=== PATIENT | female | born 1940 | race Caucasian/White ===

== ENCOUNTER 2019-03-02 19:49 | Inpatient (IN) | payer MEDICARE ==
--- NOTE | 2019-03-02 20:14 | ED ---
Neurological HPI - HPI Summary HPI Summary: Time seen by provider: 1999. The patient is an 78 y/o F presenting to [facility] arriving by ambulance as transfer from [facility] with a chief complaint of lethargy with associated neurological symptoms starting today at 1500. She states that since she woke up, she had felt more lethargic than usual, but then at 1500, her symptoms worsened as she developed a severe right-sided temporal headache, dizziness, and nausea. She thought that her blood glucose was low so she ate a candy bar to no relief. She spoke with her neighbor friend who suggested that she go to the hospital because she also started to experience confusion and a right-sided facial droop. At [facility], she had an elevated BP in the 220s/100s but the rest of her symptoms had resolved other than the headache. She reports that she has had these symptoms before with TIA-like events termed RIND that begin with a headache on the right side and associated elevated BP, RUE and RLE weakness, slurred speech, and right facial droop. She did not experience any extremity weakness during this episode. She also denies unsteady gait, CP, and SOB. She has seen neurologists at [facility] and in [place]. Hx of Type II DM, HTN, HLD, DVT/PE, and kidney stones. Medications include Lisinopril and Xarelto. Surgical hx of cholecystectomy. Nonsmoker. Medical Records Obtained from [facility]: Blood Work: WBC 12.9, Platelets 271, Glucose 170, Creatinine 1.2; Imaging: negative CT Head, nml EKG; PMHx: At least 37 listed allergies, Type II DM, HTN, HLD, kidney stones, DVT/PE ; Surgical Hx: Cholecystectomy; Social Hx: Lives alone Medications Given: 5mg Metoprolol IV, 10mg Propranolol PO - History of Current Complaint Chief Complaint: EDWeakness Stated Complaint: FATIGUE PER EMS Time Seen by Provider: 03/02/19 20:00 Hx Obtained From: Patient Onset/Duration: Sudden Onset - at 1500 today, Started hours ago, Resolved - all symptoms except for headache Onset Severity: Moderate Current Severity: Mild Neurological Deficit Location: Facial - right facial droop (resolved) Headache Location: Temporal (Right) Pain Intensity: 0 Pain Scale Used: 0-10 Numeric Character: Dizzy - resolved, Confusion - resolved, Lethargy Aggravating: Nothing Alleviating: Nothing Associated Signs and Symptoms: Positive: Headache - right temporal, Confusion, Dizziness, Nausea/Vomiting. Negative: Unsteady Gait, Weakness, Chest Pain, Shortness of Breath - Allergy/Home Medications Allergies/Adverse Reactions: Allergies Allergy/AdvReac Type Severity Reaction Status Date / Time apixaban [From Eliquis] Allergy Unknown Verified 03/02/19 20:14 Reaction Details aspirin [From Aggrenox] Allergy Unknown Verified 03/02/19 20:14 Reaction Details atorvastatin [From Lipitor] Allergy Unknown Verified 03/02/19 20:14 Reaction Details cephalexin [From Keflex] Allergy Vomiting Verified 03/02/19 20:14 clobetasol Allergy Rash And Verified 03/02/19 20:14 Itching clopidogrel [From Plavix] Allergy Shortness Verified 03/02/19 20:14 of Breath diphenhydramine Allergy Tachycardia Verified 03/02/19 20:14 [From Benadryl] dipyridamole [From Aggrenox] Allergy Unknown Verified 03/02/19 20:14 Reaction Details fluocinonide Allergy Dizziness Verified 03/02/19 20:14 furosemide [From Lasix] Allergy Unknown Verified 03/02/19 20:14 Reaction Details glipizide Allergy Dizziness Verified 03/02/19 20:14 hydromorphone [From Dilaudid] Allergy Shortness Verified 03/02/19 20:14 of Breath Latex, Natural Rubber Allergy Rash Verified 03/02/19 20:14 omeprazole Allergy Shortness Verified 03/02/19 20:14 of Breath Penicillins Allergy Shortness Verified 03/02/19 20:14 of Breath propoxyphene [From Darvon] Allergy Shortness Verified 03/02/19 20:14 of Breath red dye Allergy Swelling Verified 03/02/19 20:14 Of Face,Lips,& Throat rosuvastatin [From Crestor] Allergy Leg Cramps Verified 03/02/19 20:14 Sulfa (Sulfonamide Allergy Shortness Verified 03/02/19 20:14 Antibiotics) of Breath warfarin Allergy Shortness Verified 03/02/19 20:14 of Breath Home Medications: Home Medications Atenolol 1 tab PO DAILY 03/02/19 [History Confirmed 03/02/19] Betamethasone Sindy 0.1% CRM(NF) [Valisone 0.1% CM(NF)] 1 applic TOPICAL DAILY [History Confirmed 03/02/19] Lisinopril 1 tab PO DAILY 03/02/19 [History Confirmed 03/02/19] Lutein 6 mg PO DAILY WITH MEAL 03/02/19 [History Confirmed 03/02/19] Montelukast Sodium TAB* [Singulair TAB*] 10 mg PO BEDTIME 03/02/19 [History Confirmed 03/02/19] Rivaroxaban TAB(*) [Xarelto 20 mg] 1 tab PO DAILY 03/02/19 [History Confirmed ] Sitagliptin (NF) [Januvia (NF)] 1 tab PO DAILY 03/02/19 [History Confirmed 03/02] Spironolactone TAB* [Aldactone TAB*] 12.5 mg PO DAILY 03/02/19 [History Confirmed 03/02/19] clonazePAM TAB(*) [KlonoPIN TAB(*)] 0.5 mg PO DAILY 03/02/19 [History Confirmed 03/02/19] PMH/Surg Hx/FS Hx/Imm Hx Endocrine/Hematology History: Reports: Hx Diabetes - type II Cardiovascular History: Reports: Hx Hypercholesterolemia, Hx Hypertension Respiratory History: Reports: Hx Pulmonary Embolism - DVT PE History: Reports: Hx Kidney Stones Sensory History: Reports: Hx Contacts or Glasses Opthamlomology History: Reports: Hx Contacts or Glasses EENT History: Denies: Hx Deafness Neurological History: Reports: Other Neuro Impairments/Disorders - TIA/RIND - Surgical History Surgery Procedure, Year, and Place: cholecystectomy Infectious Disease History: No Infectious Disease History: Denies: Traveled Outside the [place] in Last 30 Days - Family History Known Family History: Positive: Hypertension, Diabetes - Social History Lives: Alone Alcohol Use: None Hx Substance Use: No Substance Use Type: Reports: None Hx Tobacco Use: No Smoking Status (MU): Never Smoked Tobacco Do You Chew or Dip Tobacco: No Have You Chewed or Dipped Tobacco in the LAST YEAR: No Have You Smoked in the Last Year: No Review of Systems Positive: Other - lethargy, body aches Negative: Chest Pain Negative: Shortness Of Breath Positive: Nausea Neurological: Other - POSITIVE: right-sided facial droop (resolved), confusion ( resolved), dizziness (resolved); NEGATIVE: unsteady gait Positive: Headache - right-sided temporal. Negative: Weakness - in legs or arms , Slurred Speech All Other Systems Reviewed And Are Negative: Yes Physical Exam - Summary Physical Exam Summary: Appearance: well appearing, no pain distress Skin: warm, dry, reflects adequate perfusion Head/face: normal Eyes: EOMI, MEG ENT: mucous membranes moist Neck: supple, non-tender Respiratory: CTA, breath sounds present Cardiovascular: Bradycardic, pulses symmetrical Abdomen: non-tender, soft Bowel Sounds: present Musculoskeletal: normal, strength/ROM intact Neuro: sensory motor intact, A&Ox3, twitching in upper lip mostly right-sided but no facial droop but otherwise no other symptoms present Triage Information Reviewed: Yes Vital Signs On Initial Exam: Initial Vitals Temp Pulse Resp BP Pulse Ox 97.8 F 57 24 213/83 97 03/02/19 19:55 03/02/19 19:55 03/02/19 19:55 03/02/19 19:55 03/02/19 19:55 Vital Signs Reviewed: Yes - [place] Coma Scale Best Eye Response: 4 - Spontaneous Best Motor Response: 6 - Obeys Commands Best Verbal Response: 5 - Oriented Coma Scale Total: 15 Diagnostics - Vital Signs Vital Signs Temp Pulse Resp BP Pulse Ox 03/02/19 19:55 97.8 F 57 24 213/83 97 - Laboratory Lab Statement: Any lab studies that have been ordered have been reviewed, and results considered in the medical decision making process. - EKG 2031 Cardiac Rate: Bradycardia - 53 BPM EKG Rhythm: Sinus Bradycardia Summary of EKG Findings: Bradycardia at 53 BPM, Normal [place], Normal Interval, Normal ST NIH Scale - NIH Scale Level of Consciousness: Alert/Keenly Responsive Ask Patient the Month and His/Her Age: Both Correct Ask Pt to Open/Close Eyes and Particle Board Supervisor/Release Non-Paretic Hand: Both Correctly Best Gaze (Only Horizontal Eye Movement): Normal Visual Field Testing: No Visual Loss Facial Paresis-Pt to Smile & Close Eyes or Grimace Symmetry: Normal/Symmetrical Motor Function - Right Arm: No Drift-Holds 10 Seconds Motor Function - Left Arm: No Drift-Holds 10 Seconds Motor Function - Right Leg: No Drift-Holds 10 Seconds Motor Function - Left Leg: No Drift-Holds 10 Seconds Limb Ataxia-Must be out of Proportion to Weakness Present: Absent Sensory (Use Pinprick to Test Arms/Legs/Trunk/Face): Normal Best Language (Describe Picture, Name Items): No Aphasia Dysarthria (Read Several Words): Normal Extinction and Inattention: No Abnormality Total Score: 0 Course/Dx - Course Course Of Treatment: Nurses notes reviewed. Patient is a transfer from outside hospital with concern for stroke syndrome. She has NIH stroke score of 0 at present and was given aspirin and hydration here. Her head CT laboratories been benign outpatient. She has multiple stated allergies included aspirin however she states that she can take this. Hospitalist was contacted and she will be admitted for further. Her blood pressure was grossly elevated and this was treated with IV hydralazine with good results. Blood pressure is 1 from 222 systolic down to 177 systolic. - Diagnoses Provider Diagnoses: TIA (transient ischemic attack), Uncontrolled hypertension - Physician Notifications Discussed Care Of Patient With: Rossana Gannon - hospitalist Time Discussed With Above Provider: 20:00 Instructed by Provider To: Other - I consulted with Dr. Gannon who accepts the patient for admission at this time. - Critical Care Time Critical Care Time: 30-74 min - Critical care time is exclusive of separately billable procedures Discharge - Sign-Out/Discharge Documenting (check all that apply): Patient Departure - Patient will be admitted to [facility] for further care. Patient Received Moderate/Deep Sedation with Procedure: No - Discharge Plan Condition: Fair Disposition: ADMITTED TO [facility] - Billing Disposition and Condition Condition: FAIR Disposition: Admitted to [facility] - Attestation Statements Document Initiated by Alexe: Yes Documenting Scribe: Audelia Gifford Provider For Whom Corby is Documenting (Include Credential): Dr. Aleksandr Dalal MD Scribe Attestation: Audelia Castillo scribed for Dr. Aleksandr Dalal MD on 03/03/19 at 0348. Scribe Documentation Reviewed: Yes Provider Attestation: The documentation as recorded by the Audelia block accurately reflects the service I personally performed and the decisions made by me, Dr. Aleksandr Dalal MD Status of Scribe Document: Viewed
[2019-03-02] MEDS ORDERED: hydrALAZINE IV* 20 MG/ML VIAL IV SLOW PU ONE (20:15)
[2019-03-02] MEDS ORDERED: Aspirin 81 mg CHEW TAB* 81 MG TAB.CHEW PO ONE (20:22)
[2019-03-02] MEDS ORDERED: hydrALAZINE IV* 20 MG/ML VIAL IV SLOW PU PRN (22:11)
[2019-03-02] MEDS ORDERED: Dextrose 50% Syringe 50 ML* 25 GM/50 ML SYRINGE IV PUSH PRN (22:57)
[2019-03-02] MEDS ORDERED: HYDROcodone/ACETAMIN 5-325 MG* 1 TAB PO PRN (23:05)
--- NOTE | 2019-03-03 00:35 | HP ---
CC: Dr. Reese Banks, [place] * HISTORY AND PHYSICAL: DATE OF ADMISSION: 03/02/19 PRIMARY CARE PROVIDER: Dr. Reese Banks in [place]. ATTENDING PHYSICIAN: Rossana Gannon MD * (dictated by KINGSLEY Alaniz). CHIEF COMPLAINT: "I thought I was having another TIA." HISTORY OF PRESENT ILLNESS: Ms. Nunes is an 78-year-old female with a reported past history of TIA sine approximately 2013, "RIND," hypertension, diabetes mellitus, chronic kidney disease stage 3, positive anticardiolipin antibody syndrome, who presented to [facility] with complaints of blurred vision and headache. She reported she has been tired all day. She developed a severe headache around 3 p.m. which was associated with blurred vision. She notes that this lasted approximately 1 hour. At [place], the patient received a CT scan of the head, which revealed no acute hemorrhage, significant mass effect or large infarct. The patient scored 2 on the NIH scale for partial paralysis of the low face (left, per report). She was then transported to [facility]. The patient again notes she has an extensive history of TIAs and RIND. She states that they occur every 6 months or so. She states that she feels her "face is pulled" and heavy. She developed headaches, slurred speech, and cannot use her arm. She notes that these episodes last approximately 1 hour and then disappear without intervention. Now, at [facility], she reports that her headache is mostly resolved, although she does note a faint but constant frontal headache. Her blurred vision has improved since approximately 30 to 40 minutes after the onset of headache and blurred vision. She continues to be tired. Initially, she had dizziness and nausea which have all subsided. She denies abdominal pain, vomiting, chest pain, weakness, or shortness of breath. 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 She denies cough or fever. She denies weakness in any extremity or other neurological deficit. While in the emergency room, the patient received hydralazine 10 due to elevated blood pressure. The hospitalist team were asked to evaluate the patient for admission. The patient was noted to get up and go to the bathroom at some point prior to admission. She apparently used the bathroom and when she was walking out, she got dizzy and lightheaded. She called for help. Staff helped to hold her up until a stretcher was brought to her. She was helped onto the stretcher and then the patient started to develop full body tremors that involved bilateral upper and lower extremities as well as facial twitching and grimacing of the right side of the face. She was responsive throughout the event. She was able to maintain a conversation and answer questions. She notes that this happens to her "every once in a while." She states that this is the TIAs which she also calls RIND and seizures. She is able to follow commands. She is alert, oriented, and cooperative, but noted to have tremors throughout the whole experience. She notes that when this occurs, which it does every 6 months or so , she typically has to wait it out and then she is left with some amount of difficulty with speech or slurred speech as well as facial drooping. PAST MEDICAL HISTORY: 1. Hypertension. 2. Diabetes mellitus type 2. 3. Dyslipidemia. 4. Asthma 5. Chronic kidney disease stage 3. 6. Positive anticardiolipin antibody syndrome. 7. Obesity. 8. Nephrolithiasis. PAST SURGICAL HISTORY: Appendectomy, [facility]RE[facility] BSO, cholecystectomy with postop pulmonary embolism, lithotripsy, ureteroscopy and stent placement, right knee arthroplasty. HOME MEDICATIONS: 1. Lisinopril 10 mg p.o. daily. 2. Xarelto 20 mg p.o. daily. 3. Spironolactone 25 mg one-half tab p.o. daily. 4. Atenolol 50 mg 1 tab p.o. daily. 5. Januvia 50 mg p.o. daily. 6. Lutein 6 mg cap, 1 cap with meals p.o. daily. 7. Montelukast sodium 10 mg p.o. daily. 8. Klonopin 0.5 mg p.o. daily p.r.n. anxiety, MDD 1. DRUG ALLERGIES: APIXABAN, ASPIRIN, ATORVASTATIN, CEPHALEXIN, CLOBETASOL, CLOPIDOGREL, DIPHENHYDRAMINE, DIPYRIDAMOLE, FUROSEMIDE, FLUOCINONIDE, GLIPIZIDE , HYDROMORPHONE, LATEX, NATURAL RUBBER, OMEPRAZOLE, PENICILLIN, PROPOXYPHENE, RED DYE, ROSUVASTATIN, SULFA, WARFARIN. FAMILY HISTORY: CVA, heart disease, diabetes mellitus, lung cancer - father was a smoker. SOCIAL HISTORY: The patient has never smoked. She does not use alcohol. She is retried. She lives alone. Her in March 2018. In the event that she is unable to make her own medical decisions, her son, Cristóbal Nunes, will be her surrogate decision maker. REVIEW OF SYSTEMS: A 10-point review of systems was performed and all the pertinent positives and negatives are in the HPI. All other systems are negative. PHYSICAL EXAMINATION GENERAL: Ms. Nunes is a well-developed, well-nourished, obese, elderly woman who is sitting up in bed. She appears to be in no acute distress at the moment. She is cooperative, appropriate, and pleasant. She does appear to have some facial asymmetry with the right side being slightly droop, although she is able to move this area. The patient is noted to have a tremor to the upper lip and bilateral cheek area. She states that this is intermittent. She also notes that the right facial droop is chronic. VITAL SIGNS: Temperature 97.8 temporal, heart rate 57, respiratory rate 24, oxygen saturation 97% on room air, blood pressure 213/83. HEENT: Visual balbuena are grossly intact. The pupils are equally round and reactive to light. Extraocular movements are intact. Sclera is without icterus. Hearing is grossly intact. Oral mucous membranes are moist. There are no lesions. The pharynx is clear. RESPIRATORY: Symmetrical chest expansion without use of accessory muscles. Lungs are clear to auscultation. There are no rhonchi, wheezes, or rubs. CARDIOVASCULAR: Regular rate and rhythm with S1, S2 present. No murmurs, rubs , clicks, or gallops. There is no JVD. ABDOMEN: Obese. Bowel sounds noted in all quadrants. The abdomen is nontender to palpation. There is no hepatosplenomegaly. MUSCULOSKELETAL: Full range of motion without pain or deformities. EXTREMITIES: Skin is warm and smooth bilaterally. There is no edema, clubbing , or cyanosis. Radial and pedal pulses are palpable. NEURO: The patient is awake. She is alert and oriented x3. Cranial nerves II through XII are grossly intact. She is able to move all of her extremities. She has a motor strength of 5/5 in upper and lower extremities bilaterally. She has a steady gait without impairment. DIAGNOSTIC STUDIES/LABORATORY DATA: From [facility], 03/02/19, CT head without IV contrast. Findings there is no acute hemorrhage, significant mass effect or large infarct. There is prominence of the ventricles and cortical sulci compatible with very mild diffuse cerebral atrophy, mild decreased attenuation in the subcortical white matter is compatible with microvascular ischemic changes. These findings are similar to 2015, although technique is different. The visualized paranasal sinuses and mastoid air cells are clear. ASSESSMENT AND PLAN: Ms. Nunes is an 78-year-old female with a past medical history of diabetes, hypertension, reported history of repeated transient ischemic attacks and positive anticardiolipin antibody syndrome, who presented to the ER today as a transfer from [place] with complaints of headache and blurred vision. The patient will be admitted to observation for: 1. Headache, blurred vision, tremors. The patient arrived at the ER with a history of facial droop, which was noted on the right side on admission, [place] chart states left-sided facial droop. Regardless, she has a facial droop. She was noted to have vision changes that have since almost completely resolved and a severe headache, also resolving. She then was noted to have an episode of tremors that lasted approximately 7 to 10 minutes. Differential includes TIA versus hypertensive emergency versus partial seizures, migraine is less likely. The patient is noted to have a systolic blood pressure into the 200s on admission. She was given hydralazine for this. Neurology has been consulted. They recommend CTA of the head and neck, although it is noted that the patient is allergic to CONTRAST. MRI of the head will be ordered. Echocardiogram and EEG ordered. Hemoglobin A1c, lipids ordered for the morning. Neuro checks q.4 hours have been ordered. The patient will be placed on seizure precautions. The patient will be admitted on telemetry. 2. Hypertension. The patient will be given her home medications and continued on them, lisinopril, atenolol, and spironolactone. She will be given hydralazine q.4 hours with goal blood pressure of 160 to 180 allowing for permissive hypertension in the setting of possible transient ischemic attack. 3. Diabetes mellitus. The patient will be placed on sliding scale lispro. 4. Positive anticardiolipin antibody syndrome. The patient will be continued on her home Xarelto. 5. Code status: DNR. 6. DVT prophylaxis: The patient will continue on home Xarelto. TIME SPENT: Approximately 70 minutes was spent on this admission, greater than half that time was spent with the patient obtaining history, performing physical , and reviewing the plan of care. The case has been reviewed with my attending Dr. Gannon, who is in agreement with the plan of care. KINGSLEY REICH [id number]/[facility] #: [id number] SHANE
[2019-03-03] MEDS ORDERED: Ondansetron INJ* 2 MG/ML VIAL IV PRN (01:40)
--- NOTE | 2019-03-03 04:14 | PN ---
Progress Note - Progress Note Date of Service: 03/03/19 Note: HR in mid 40's - d/c atenolol
[2019-03-03 06:29] LABS: ABS Lymphocytes 1.7 10^3/ul (1.0-4.8); ABS Monocytes 0.5 10^3/ul (0-0.8); ABS Neutrophils 8.9 10^3/ul (1.5-7.7); Hematocrit 43 % (35-47); Hemoglobin 14.1 g/dL (12.0-16.0); Lymphocyte % 15.5 %; Mean Corpuscular HGB Conc 33 g/dL (31-36); Mean Corpuscular Hemoglobin 31 pg (27-31); Mean Corpuscular Volume 95 fL (80-97); Mean Platelet Volume 7.9 fL (7.4-10.4); Platelet Count 223 10^3/uL (150-450); Red Blood Count 4.52 10^6 /uL (3.70-4.87); Red Cell Distribution Width 13 % (10.5-15); White Blood Count 11.2 10^3/uL (3.5-10.8)
[2019-03-03 06:53] LABS: BUN/Creatinine Ratio 17.1 (8-20); Calcium 9.3 mg/dL (8.6-10.3); EGFR African American 81.2 (>60); EGFR Non-African American 67.1 (>60); Potassium 3.9 mmol/L (3.5-5.0)
[2019-03-03] MEDS: Spironolactone TAB* 25 MG PO SCH (08:10)
[2019-03-03] MEDS: Lisinopril TAB* 10 MG PO SCH (08:10)
[2019-03-03] MEDS: Insulin LISPRO* 1 UNITS UNIT SUBCUT SCH ×3 (08:16→17:06)
[2019-03-03] MEDS ORDERED: Aspirin EC TAB* 81 MG TAB.EC PO SCH (09:00)
[2019-03-03] MEDS ORDERED: Atenolol TAB* 50 MG PO SCH (09:00)
--- NOTE | 2019-03-03 11:22 | CONS ---
CC: Dr. Reese Banks* CONSULTATION REPORT: DATE OF CONSULT: 03/03/19. LOCATION: Currently in room 449, bed 2. PRIMARY CARE PROVIDER: Dr. Reese Banks. REASON FOR CONSULT: Possible transient ischemic attack. HISTORY OF PRESENT ILLNESS: Ms. 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 She has been seen by Dr. Luke in the distant past for a history of possible seizures. She has also been seen by and has been seen in [place] before, I do not have those records. I was called yesterday at around 6:00 p.m. from [facility]. She presented there with acute onset of severe headache starting at around 3 that afternoon associated with some blurred vision. she also noted some drawing of her face to the right. This lasted for a few hours and then resolved. She had a CT of the head done there, which showed no acute changes. NIH score still there was 2. [place] was contacted and felt she was outside of the window for TPA as apparently she had been having a lower facial droop for sometime. 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 She also was deemed not to be a good large vessel occlusion candidate, but a CT angiogram was recommended and [place] recommended that she be transferred to a facility where she could have a CTA. She was subsequently transferred here and admitted to the hospital for further workup. Imaging is pending at this point. Interestingly, the patient has a long history of these episodes. She states they date back several years. She has been evaluated multiple times and "each time they can't find anything". The symptoms are always the same. They typically start with a headache, which start from the left side and moves to the right side and centers behind the right eye. This can last for an hour or several hours. No associated nausea or vomiting with them in general. Then, she will develop drooping of the right lower face. Sometimes, she has weakness and heaviness of the right leg and arm. This happens consistently each time. She states that they can be as far a part of 6 months, but can be closer together at times. Same exact things happened yesterday although she states it was different because she had no symptoms in her arm or leg, just her face. She also carries a diagnosis of seizures. Apparently, she has been evaluated in the past for these at the [place]. She is not on any seizure medications, but has seen multiple neurologists. She has been told before that this could be related to her anxiety. Yesterday, she had two events where she became very shaky of her arms and legs. She was completely awake and oriented times during the whole episode. She had no loss of bladder or bowel control. No tongue biting. The symptoms resolved and she had no other deficits. She did not have one of these episodes prior to the development of the right lower facial droop. Interestingly, when she was transferred from [place], they reported left lower facial droop, but the patient notes that it was on her right side, not her left side. When she has these events, she notes a pulling in her face and she states that her face feels heavy. She will sometimes get some slurred speech as well. Typically, these symptoms will resolve spontaneously. This morning she has a very mild headache, nothing severe. No nausea, vomiting, photophobia or phonophobia. She does have a history of antiphospholipid and is on Xarelto. I did review an office note from her primary care doctor from 02/09. At that time, her sugars were running in the 140s. She was previously on aspirin, but had a bad reaction to it, is currently on Xarelto. She very rarely uses Klonopin for her anxiety. Her last year. She tried Crestor in the past, but had a reaction to it and at her office visit they discussed trying Livalo. She was willing to try starting it every other day. She does note compliance with her medication. This morning, she did develop an episode of bradycardia in the 40s, so atenolol was held. She had no episodes of AFib or other arrhythmias overnight. Also, when she was seen in the ER in [place] and subsequently when she arrived here, her blood pressure was very high. It is unclear whether these episodes are normally associated with high blood pressure, but she did receive hydralazine due to elevated blood pressure. At one point yesterday when she got up to go to the bathroom, she felt dizzy and lightheaded. She was helped into the stretcher and then she developed these full body tremors in the upper and lower extremities, as well as some facial twitching and grimacing. It was noted from the admission note that she was responsive to the whole thing, maintained a conversation and answered all questions. She noted that it happens "every once in a while" and at times confuses the TIAs with seizures with RIND. She also has what appears to be some essential tremor at rest during my examination today. PAST MEDICAL HISTORY: As noted above, obesity, nephrolithiasis, anticardiolipin syndrome, chronic kidney disease stage 3, asthma, dyslipidemia, hypertension, diabetes type 2 on medication. PAST SURGICAL HISTORY: Includes right knee surgery, ureteroscopy with stent placement, lithotripsy, cholecystectomy with complication of a postop pulmonary embolism, appendectomy, and total abdominal hysterectomy, bilateral salpingo- oophorectomy. HOME MEDICATIONS: Her home medications per her recent office visit include: 1. Lisinopril 10 mg orally once a day. 2. Xarelto 20 mg once a day. 3. Spironolactone 25 mg one-half tablets by mouth daily. 4. Atenolol 50 mg once a day. 5. Januvia 50 mg orally once a day. 6. Lutein 6 mg with meal only. 7. Montelukast sodium 10 mg in the evening. 8. Klonopin 0.5 mg p.r.n. 9. Betamethasone cream to affected area. 10. She was also apparently started on the statin medication Livalo per the note. ALLERGIES: She has multiple allergies. Please see the chart for full listing but these include: WARFARIN, SULFA, ROSUVASTATIN, RED DYE, PROPOXYPHENE, PENICILLIN, OMEPRAZOLE, NATURAL RUBBER, LATEX, HYDROMORPHONE, GLIPIZIDE, FLUOCINONIDE, FUROSEMIDE, DIPYRIDAMOLE, DIPHENHYDRAMINE, CLOPIDOGREL, CLOBETASOL , CEPHALEXIN, ATORVASTATIN, ASPIRIN, AND APIXABAN. FAMILY HISTORY: Significant for lung cancer, heart disease, diabetes. SOCIAL HISTORY: Her last year. She denies any alcohol use. She denies any tobacco use. No drug use. Her son is her surrogate decision maker. She lives by herself. REVIEW OF SYSTEMS: Review of systems in 14-organ systems as noted above. She had no vision changes or vision loss. No difficulty with word finding, although she reports some slurred speech. Headache as noted above. No hearing loss. No problem swallowing. No focal weakness yesterday. No focal numbness or tingling in the arms or leg yesterday. No bladder or bowel issues yesterday. No recent illnesses, fevers, chills, falls, head trauma. She does have noted in her recent records some chest heaviness at times when overexerts herself. The primary care is aware of this and chemical stress test was discussed and she was considering it. She had no chest pain since she has been here and reports no recent chest pain. PHYSICAL EXAM: Vital Signs: Currently blood pressure of 142/56, when she was first evaluated she was 213/83. Overnight, she has been in the 140s up to 180s/ 60s, respiratory rate of 18 to 31 at one point, O2 sats she decompensated to 75 when she was breathing 31, but otherwise her sats have been in the high 90s on room air. Heart rate has been in the 40s. She had one episode of some tachycardia overnight and then she had bradycardia as well generally 52 to 74 range. In general, she is a well-nourished, well-developed female in no acute distress. She is lying in her bed. She is very pleasant, well dressed, well groomed. HEENT: She is normocephalic, atraumatic. Sclerae are anicteric. Mucous membranes are moist. Oropharynx is clear. Nares are patent. Neck is supple. No thyromegaly. No carotid bruits. No meningismus. Chest: Clear to auscultation bilaterally. Cardiovascular is regular rate and rhythm without murmurs. Abdomen: Nontender, nondistended, obese. Extremities: No clubbing, cyanosis, or edema. Her skin is warm and dry. On neurologic exam, she is awake , alert, and oriented x3. Her speech is fluent. There is no dysarthria. Repetition is intact. Recall of recent and remote events is intact. Vocabulary is intact. Her mood is dysthymic. Affect, mood congruent. Cranial Nerves II through XII: Pupils are equally round and reactive to light and accommodation. Extraocular muscles are intact. There is no nystagmus. No diplopia. No ptosis. Visual balbuena are full to confrontation. Her facial sensation is intact to light touch bilaterally. She has a mild right lower facial droop, which she states is chronic. I see no facial droop on the left. Her face is otherwise symmetric. She reports that her right lower face has drooped for years but worsens with the episodes. Hearing is intact bilaterally. Palate raises symmetrically. Tongue is midline. Her motor exam, she is 5/5 throughout. No drift is present. Tone and bulk are both normal. DTRs are 1+ and symmetric in the upper and lower extremities bilaterally, absent at the ankles. Withdrawal Babinski bilaterally. Sensation, she has loss of light touch and pinprick in the feet bilaterally, otherwise intact to light touch and pinprick throughout. [id number] and rapid alternating movements are intact. She does have mild attention tremor bilaterally. She has some mild head tremor as well. These were at rest. No obvious cogwheeling. No increased tone. No pill rolling tremor. Gat is slightly wide based, but steady. She is able to ambulate without difficulty and Romberg negative. DIAGNOSTIC STUDIES/LAB DATA: Lab work includes a CBC with diff with white count of 11.2, absolute neutrophil of 8.9. Chemistry: Glucose of 103 to 176 and 165, triglycerides of 215, cholesterol of 201, LDL of 124, HDL of 34. Otherwise, her BNP is intact normal. CT angiogram, MRI, and echocardiogram are pending. ASSESSMENT AND PLAN: Ms. Nunes is an 78-year-old female with a complicated past medical history including diabetes type 2, dyslipidemia, chronic kidney disease stage 3, hypertension, asthma, positive cardiolipin antibody syndrome, obesity, and kidney stones. She is on Xarelto at baseline. 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 These typically occur on a rather regular basis every 6 months or so but can occur more frequently. They are associated with headaches typically on the right side. The symptoms will last for an hour or so and then resolve spontaneously. Yesterday, she states that the symptom was different because it only involved her right face not her arm and leg. She also had several shaking episodes yesterday, but was fully conscious and awake throughout and has these "every now and then". At this point, her presentation is very consistent with her prior presentations, per description she has this history of RIND versus TIAs. Unfortunately, we cannot assume that this was not a small stroke. The plan is to get an MRI, CT angiogram, echocardiogram. I will continue her aspirin. At this point, her CTA showed no evidence of hemorrhage and she does have a history of positive cardiolipin antibody. At this point, I think striving for relatively moderate blood pressure control is reasonable. I would continue to work on high blood pressure control. Cholesterol, LDL is elevated. She needs to be on some statin , but has had difficulty with statins in the past. Recently, Livalo was discussed and she can follow up with her primary care. I would not start a statin at this point given her prior history, but it is something she needs to follow with closely. She has had a past reaction to aspirin. I would not start this based on her symptoms. She apparently has a history of seizure-like episodes. She saw Dr. Luke in the distant past, she saw Dr. Oreilly" in [facility] and she apparently has been evaluated for seizures several times. She reports that "nothing was ever found". I would certainly not start on her any seizure medications based on what we saw which does not appear to be epileptogenic in nature and possibly could be nonepileptic in nature. She does have a history of anxiety. I am not going to order an EEG at this point as I would like to review her records from [place] and my suspicion for seizures is extremely low. In addition, my suspicion for something like a Srikanth's paralysis is extremely low. I do plan to follow her up in my clinic and we will request records. I would like to review the records from [place], , Dr. Luke if possible, but she has had a long history of these events. She reports that no stroke has ever been found and she reports that no epileptic seizures have ever been found. For now, we will do the testing, make sure she has not had any new strokes, make sure that she has no large vessel disease or cardiac abnormalities. At that point, if she is stable, would be to discharge her home with close follow up in my clinic in 3 to 4 weeks. I will continue to follow her make further recommendations if necessary. Thank you for the opportunity to participate in the care of this very interesting patient. [id number]/[facility] #: [id number] [facility]
[2019-03-03] MEDS ORDERED: Acetaminophen TAB* 325 MG PO PRN (11:51)
--- NOTE | 2019-03-03 14:30 | ECHO ---
*[facility]* [place] [address] Fax #: [phone] Transthoracic Echocardiogram Patient: February, Height: 62 in / Shona Ley 157.5 cm : 1940 Weight: 195.6 lb / Study Date: 03/03/2019 88.9 kg Age: 78 BP: 142 / 56 Gender: F BMI/BSA: 35.8 kg/m^2 HR: 56 bpm / 1.9 m^2 *It Generalist: * Amalia Barajas [facility] [place] *Referring Physician: * Saloni ErvinReading Physician: * Molly Rivas MD Indications: TIA. History: Functional status: Renal failure. Risk factors: Hypertension. Diabetes mellitus. Obese. Hyperlipidemia. Conclusions Summary: 1. Left ventricle: There is mild concentric hypertrophy. Systolic function is normal. The estimated ejection fraction is 60-65%. Doppler parameters are consistent with abnormal left ventricular relaxation (grade 1 diastolic dysfunction). 2. Right ventricle: Systolic function is normal. 3. Atrial septum: Bubble study was negative, no evidence of cardiopulmonary shunting. 4. Mitral valve: The annulus is mildly calcified. The leaflets are mildly thickened. There is trace regurgitation. 5. Aortic valve: Thickening, consistent with sclerosis. There is trace to mild regurgitation. 6. Tricuspid valve: There is mild regurgitation. 7. No prior echocardiogram to compare. Study data: Transthoracic echocardiogram. Procedure: Transthoracic echocardiography was performed. Image quality was good. A bubble study was performed. Images 6 and 7. Complete 2D, spectral Doppler, and color flow Doppler. Location: Echo laboratory. Patient status: Inpatient. Patient room number: 449-2. Rhythm: Bradycardia. Findings Left ventricle: The cavity size is normal. There is mild concentric hypertrophy. Systolic function is normal. The estimated ejection fraction is 60-65%. Wall motion is normal; there are no regional wall motion abnormalities. Doppler parameters are consistent with abnormal left ventricular relaxation (grade 1 diastolic dysfunction). Right ventricle: The cavity size is mildly dilated. The moderator band is in a normal position. Systolic function is normal. Left atrium: The atrium is at the upper limits of normal in size. Right atrium: The atrium is normal in size. Atrial septum: Bubble study was negative Mitral valve: The annulus is mildly calcified. The leaflets are mildly thickened. There is no evidence of stenosis. There is trace regurgitation. Aortic valve: The annulus is mildly calcified. The valve is trileaflet. The leaflets are mildly thickened. Thickening, consistent with sclerosis. There is no evidence of stenosis. There is trace tomild regurgitation. Tricuspid valve: The leaflets are normal thickness. There is no evidence of stenosis. There is mild regurgitation. Pulmonic valve: The leaflets are normal thickness. There is no evidence of stenosis. There is trace regurgitation. Aorta: Ascending aorta: The ascending aorta is appears normal. Aortic arch: The aortic arch is appears normal. The aortic root is not dilated. Pericardium: A prominent pericardial fat pad is present. There is no pericardial effusion. Pulmonary arteries: The main pulmonary artery is normal-sized. Systemic veins: Inferior vena cava: The vessel is normal in size. The respirophasic diameter changes are in the normal range (>= 50%). Measurements Left ventricle Value Ref Aortic valve Value Ref ALCON, LAX 4.0 cm 3.8 - Chantal diam, ED 1.9 cm ----- 5.2 Peak v, S 2.15 m/sec ----- ESD, LAX 2.9 cm 2.2 - VTI, S 43.9 cm ----- 3.5 Mean grad, S 7.0 mm Hg ----- FS, LAX 29 % 27 - 45 Peak grad, S 18.0 mm Hg ----- PW, ED, LAX (H) 1.1 cm 0.6 - LVOT/AV, VTI ratio 0.64 ----- 0.9 FS 29 % 27 - 45 Mitral valve Value Ref PW, ED (H) 1.1 cm 0.6 - Peak E 0.7 m/sec ----- 0.9 Peak A 1.23 m/sec ----- E', lat chantal, TDI (L) 7.0 cm/sec >=10.0 Decel time 349 ms --- -- E/e', lat chantal, TDI 10 -------- Peak E/A ratio 0.6 ----- E', med chantal, TDI (L) 4.2 cm/sec >=7.0 E/e', med chantal, TDI 17 -------- Pulmonic valve Value Ref E', avg, TDI 5.6 cm/sec -------- Peak v, S 1.28 m/sec ----- E/e', avg, TDI 13 <=14 Peak grad, S 7.0 mm Hg --- -- LVOT Value Ref Tricuspid valve Value Ref Peak alejandro, S 1.19 m/sec -------- TR peak v 2.4 m/sec <=2.8 VTI, S 28.0 cm -------- Peak RV-RA grad, S 23 mm Hg ----- Peak grad, S 6 mm Hg -------- Mean grad, S 3 mm Hg -------- Aortic root Value Ref Root diam 2.7 cm <4.1 Ventricular septum Value Ref IVS, ED (H) 1.1 cm 0.6 - Ascending aorta Value Ref 0.9 AAo AP diam, S 3.1 cm ----- Right ventricle Value Ref Aortic arch Value Ref ALCON, LAX 3.6 cm -------- Arch diam 2.3 cm ----- ALCON minor ax, A4C (H) 4.9 cm 1.9 - mid 3.5 Decending aorta Value Ref Pressure, S 26 mm Hg -------- Yoni peak alejandro 1.04 m/sec ----- Left atrium Value Ref Pulmonary artery Value Ref ML dim, A4C 3.9 cm -------- Pressure, S 19.0 mm Hg ----- SI dim, A4C 5.4 cm -------- Vol/bsa, ES, 1-p 28 ml/m^2 11 - 40 Inferior vena cava Value Ref A4C Diam 1.6 cm ----- Vol/bsa, ES, A/L 26 ml/m^2 16 - 34 Right atrium Value Ref SI dim, ES 4.2 cm 3.4 - 5.3 ML dim, ES, A4C 3.9 cm 2.6 - 4.4 SI dim, ES, A4C 4.2 cm 3.4 - 5.3 SI dim/bsa, ES, A4C 2.2 cm/m^2 1.9 - 3.1 Estimated RAP 3 mm Hg -------- Legend: (L) and (H) marielle values outside specified reference range. Prepared and electronically signed by Molly Rivas MD 03/03/2019 14:29
[2019-03-03] MEDS ORDERED: Iodixanol* (CONTRAST) 320 MG/ML 100 ML SDV IV ONE (15:16)
[2019-03-03] MEDS ORDERED: Rivaroxaban TAB(*) 20 MG TAB PO SCH (18:00)
--- NOTE | 2019-03-03 20:34 | PN ---
Subjective Date of Service: 03/03/19 Interval History: Pt seen and examined. Meds and labs reviewed. CC: N/A ROS: Denied PATEL/dizziness, F/C, N/V, CP, SOB, increased cough, sputum production , abd pain, diarrhea, constipation, dysuria, myalgias, arthralgias, throat pain , and new skin lesions. The rest of the 14 point ROS are unremarkable. PHYSICAL EXAM: GEN APPEARANCE: Awake, not in acute distress HEENT: NC/AT, PERRLA, moist oral mucosa, (-) throat erythema NECK: Soft, supple, (-) cervical LAD, (-)JVD HEART: S1S2 WNL, RRR, No MRG CHEST: CTA, BL, GAE, No W/R/R ABD: Soft, ND/NT, NABS 4x Q EXT: No C/C/E SKIN: Warm to touch PSYCH: No active psychosis, hallucinations, depression, SI/HI Objective Active Medications: Acetaminophen (Tylenol Tab*) 650 mg PO Q6H PRN PRN Reason: Pain/Fever Last Admin: 03/03/19 11:56 Dose: 650 mg Hydrocodone Bitart/Acetaminophen (Clarks 5-325 Tab*) 1 tab PO Q6H PRN PRN Reason: PAIN Last Admin: 03/02/19 23:41 Dose: 1 tab Aspirin (Aspirin Ec Tab*) 81 mg PO DAILY [facility] Last Admin: 03/03/19 08:10 Dose: 81 mg Dextrose (D50w Syringe 50 Ml*) 12.5 gm IV PUSH .FOR FS < 60 - SS PRN PRN Reason: FS < 60 Hydralazine HCl (Apresoline Iv*) 5 mg IV SLOW PU Q4H PRN PRN Reason: Keep SBP 160-180 Insulin Human Lispro (Humalog*) 0 units SUBCUT AC [facility]; Protocol Last Admin: 03/03/19 17:06 Dose: Not Given Lisinopril (Prinivil Tab*) 10 mg PO DAILY [facility] Last Admin: 03/03/19 08:10 Dose: 10 mg Montelukast Sodium (Singulair Tab*) 10 mg PO BEDTIME [facility] Ondansetron HCl (Zofran Inj*) 4 mg IV Q8H PRN PRN Reason: NAUSEA Last Admin: 03/03/19 02:32 Dose: 4 mg Rivaroxaban (Xarelto(*)) 20 mg PO QPM [facility] Last Admin: 03/03/19 17:38 Dose: 20 mg Spironolactone (Aldactone Tab*) 12.5 mg PO DAILY [facility] Last Admin: 03/03/19 08:10 Dose: 12.5 mg Vital Signs - 8 hr 03/03/19 03/03/19 15:14 19:06 Temperature 97.9 F Pulse Rate 54 Respiratory 16 16 Rate Blood Pressure 128/64 (mmHg) O2 Sat by Pulse 97 Oximetry Oxygen Devices in Use Now: None Result Diagrams: 03/03/19 06:07 03/03/19 06:07 Assess/Plan/Problems-Billing Assessment: - Patient Problems (1) Headache Current Visit: Yes Status: Acute Code(s): R51 - HEADACHE SNOMED Code(s): 93731161 Comment: -Likely due to RIND vs. TIA -MRI head: (-) CVA; likely microvascular change w/o bleed -D/W Dr. Barreto and requested that CTA of H&N be done, however, she is allergic to contrast -Will defer w/hospitalist colleague to touch-base with Neuro regarding above in AM (2) HTN (hypertension) Current Visit: Yes Status: Acute Code(s): I10 - ESSENTIAL (PRIMARY) HYPERTENSION SNOMED Code(s): 25669686 Comment: -Continue Spirinolactone, PRN Hydralazine (3) Diabetes 1.5, managed as type 2 Current Visit: Yes Status: Acute Code(s): E13.9 - OTHER SPECIFIED DIABETES MELLITUS WITHOUT COMPLICATIONS SNOMED Code(s): 941664996 Comment: -Well controlled -Continue ISS (4) Antiphospholipid antibody syndrome Current Visit: Yes Status: Acute Code(s): D68.61 - ANTIPHOSPHOLIPID SYNDROME SNOMED Code(s): 74568806 Comment: -Continue Xarelto (5) DVT prophylaxis Current Visit: Yes Status: Acute Code(s): Z29.9 - ENCOUNTER FOR PROPHYLACTIC MEASURES, UNSPECIFIED SNOMED Code(s): 149925965 Comment: -Continue Xarelto Status and Disposition: -As above
[2019-03-03] MEDS ORDERED: Montelukast Sodium TAB* 10 MG PO SCH (21:00)
[2019-03-04 06:27] LABS: Hematocrit 46 % (35-47); Hemoglobin 15.2 g/dL (12.0-16.0); Mean Corpuscular HGB Conc 33 g/dL (31-36); Mean Corpuscular Hemoglobin 32 pg (27-31); Mean Corpuscular Volume 96 fL (80-97); Mean Platelet Volume 8.4 fL (7.4-10.4); Platelet Count 244 10^3/uL (150-450); Red Blood Count 4.78 10^6 /uL (3.70-4.87); Red Cell Distribution Width 13 % (10.5-15); White Blood Count 10.1 10^3/uL (3.5-10.8)
[2019-03-04 06:59] LABS: Albumin 4.1 g/dL (3.2-5.2); Calcium 9.5 mg/dL (8.6-10.3); Magnesium 1.9 mg/dL (1.9-2.7); Potassium 4.2 mmol/L (3.5-5.0); Total Bilirubin 0.7 mg/dL (0.2-1.0)
[2019-03-04 07:05] LABS: Albumin/Globulin Ratio 1.3 (1-3); BUN/Creatinine Ratio 18.7 (8-20); EGFR Non-African American 59.5 (>60); Globulin 3.1 g/dL (2-4); Phosphorus 2.8 mg/dL (2.5-5.0); Total Protein 7.2 g/dL (6.4-8.9)
[2019-03-04] MEDS: Insulin LISPRO* 1 UNITS UNIT SUBCUT SCH ×2 (07:53→12:06)
[2019-03-04] MEDS: Spironolactone TAB* 25 MG PO SCH (08:17)
[2019-03-04] MEDS: Lisinopril TAB* 10 MG PO SCH (08:17)
[2019-03-04 15:28] VITALS: BP 129/53
--- NOTE | 2019-03-07 00:30 | DS ---
CC: Dr. Reese Banks in [place]; Dr. Barreto DISCHARGE SUMMARY: DATE OF ADMISSION: 03/02/19 DATE OF DISCHARGE: 03/04/19 FINAL DISCHARGE DIAGNOSES: 1. Transient ischemic attack. 2. Hypertensive urgency. 3. Diabetes mellitus. 4. Hyperlipidemia. 5. Antiphospholipid syndrome. HOSPITAL COURSE: Patient presented to [facility] on 03/02/19 for what seemed to be TIA de scribing symptoms of blurred vision and headache. Initially, she presented to [facility]. Sh e states she has been tired all day associated with severe headache and blurred vision. It lasted fo r about an hour. She had CT scan at the [facility], which did not reveal any acute hemorrhage or significant mass, and then she was transported to [facility] for further evaluation. 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 By the time she arri guerda to our facility, her headache has mostly resolved and her blurred vision has improved, but contin ued to be tired. In the emergency room at [facility], she was noted to have high blood pr essure and she required hydralazine 10 mg x1. The patient was admitted to our facility. While in th e emergency room, while awaiting to be admitted, patient developed full body tremors involving bilate ral upper and lower extremities and facial twitching and grimacing. She was responsive throughout th e entire event and was able to maintain conversation and answer questions and she verbalized that thi s is part of her symptoms, it happens to her once in a while. In that regard, patient is then admitte d to our service on telemetry floor. She was placed on seizure precautions and Neurology was consult ed, who recommended to obtain CTA of the head and neck, MRI of the brain, echocardiogram, EEG, A1c, a nd lipid panel, and patient was treated for her blood pressure aggressively. Patient underwent the echocardiogram, which revealed ejection fraction of 60% to 65%. Bubble study w as negative for cardiopulmonary shunting. No valvular disease. She had MRI of the brain. It did not show any evidence of intracranial hemorrhage. No evidence of an y acute infarct. She was consulted with Neurology, Dr. Barreto, who again advised to pursue the CT denise ogram, as the patient declined having it done due to allergy to contrast. Patient was offered to be treated. She continued to completely refuse due to the risk of stopping breathing and CT angiogram o f the head and neck not performed. EEG was not recommended by Dr. Barreto as it would not change the ma nifestation or treatment and advised to follow up with his office for further evaluation while trying to obtain record from [place] and her prior workup in the past. Patient was seen by me for tristiana l encounter on 03/04/19. After reviewing the MRI, the echocardiogram, her tele and vitals, which seem ed to have subsided and improved down to 130/41. I attempted to readdress the CT angiogram with the patient. She would not want to have it done. At this stage, I believe there was no further workup a s an inpatient. With the resolution of her symptoms, I deemed her stable for discharge and follow up as an outpatient with Neurology. DISCHARGE PHYSICAL EXAMINATION: Pulse 79, respiratory rate 18, satting 99%, blood pressure 129/53. General: She is awake, alert, pleasant, in no acute distress. Head and Neck: Normocephalic and atra umatic. Supple. Lungs: Clear to auscultation bilaterally. Abdomen: Positive bowel sounds, soft, nontender, nondistended. Extremities: No pedal edema. 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 DISCHARGE MEDICATIONS: Continue home meds as follows: 1. Spironolactone 12.5 daily. 2. Singulair 10 daily. 3. Atenolol 1 tab daily. 4. Xarelto 20 daily. 5. Januvia every day. 6. Betamethasone cream as needed. 7. Clonazepam 0.5 daily. 8. Lutein 6 mg twice a day with meal. 9. Lisinopril 10 mg twice a day. This is increased from her home regimen of lisinopril 10 mg daily. DISCHARGE RECOMMENDATIONS: 1. Follow up with Dr. Barreto in 3 to 4 weeks. 2. Follow up with primary care in 1 to 2 weeks. To [facility] and schedule an appointment. DISCHARGE DISPOSITION: Home. DISCHARGE CONDITION: Stable. [id number]/[facility] #: [id number]
== END 2019-03-04 15:50 | disposition home or self-care (01) | DRG 69 ==
LOC: ED 19:49 → MEDTELE 21:17 → OBSVTOIN 03-03 14:00
PROVIDERS: ADMIT Internal Medicine; ATTEND Internal Medicine
DX: G45.9 Transient cerebral ischemic attack, unspecified (principal); D68.61 Antiphospholipid syndrome; I16.0 Hypertensive urgency; R00.1 Bradycardia, unspecified; R40.2362 Coma scale, best motor response, obeys commands, at arrival to emergency department; R40.2142 Coma scale, eyes open, spontaneous, at arrival to emergency department; R40.2252 Coma scale, best verbal response, oriented, at arrival to emergency department; I12.9 Hypertensive chronic kidney disease with stage 1 through stage 4 chronic kidney disease, or unspecified chronic kidney disease; E11.22 Type 2 diabetes mellitus with diabetic chronic kidney disease; N18.3 Chronic kidney disease, stage 3 (moderate); E66.9 Obesity, unspecified; J45.909 Unspecified asthma, uncomplicated; R29.810 Facial weakness; E78.00 Pure hypercholesterolemia, unspecified; E78.5 Hyperlipidemia, unspecified; Z66 Do not resuscitate; Z79.01 Long term (current) use of anticoagulants; Z91.041 Radiographic dye allergy status; Z86.718 Personal history of other venous thrombosis and embolism; Z86.711 Personal history of pulmonary embolism; Z87.442 Personal history of urinary calculi; Z90.49 Acquired absence of other specified parts of digestive tract; Z88.0 Allergy status to penicillin; Z88.2 Allergy status to sulfonamides; Z88.8 Allergy status to other drugs, medicaments and biological substances; Z88.6 Allergy status to analgesic agent; Z91.040 Latex allergy status; Z86.73 Personal history of transient ischemic attack (TIA), and cerebral infarction without residual deficits; Z82.49 Family history of ischemic heart disease and other diseases of the circulatory system; Z83.3 Family history of diabetes mellitus; Z68.36 Body mass index [BMI] 36.0-36.9, adult
CPT/HCPCS: 36415; 70551; 80048; 80053; 80061; 83036; 83735; 84100; 85025; 85027; 93005; 93306; 99284; A9270-GY; G0378; J0360; J2405

== ENCOUNTER 2024-01-15 23:15 | Inpatient (IN) ==
[2024-01-16 00:16] LABS: ABS Basophils 0.2 10^3/uL (0.0-0.1); ABS Lymphocytes 3.1 10^3/uL (1.0-4.8); ABS Monocytes 1.3 10^3/uL (0.0-0.9); ABS Nucleated RBC 0.01 10^3/ul; Eosinophil % 0.1 %; Hematocrit 38.1 % (35-45); Hemoglobin 12.9 g/dL (11.5-14.3); Lymphocyte % 15.7 %; Mean Corpuscular Hemoglobin 31.8 pg (27-33); Mean Corpuscular Volume 93.7 fL (80-97); Nucleated Red Blood Cells % 0.1 %/100WBC (0.0-0.8); Platelet Count 252 10^3/uL (150-450); Red Blood Count 4.06 10^6/uL (3.63-4.92); Red Cell Distribution Width 12.9 % (12-17); White Blood Count 19.6 10^3/uL (3.8-11.8)
[2024-01-16 00:18] LABS: ABS Basophils 0.1 10^3/uL (0.0-0.1); ABS Lymphocytes 3.1 10^3/uL (1.0-4.8); ABS Monocytes 1.3 10^3/uL (0.0-0.9); ABS Neutrophils 15.1 10^3/uL (1.5-7.6); ABS Nucleated RBC 0.01 10^3/ul; Eosinophil % 0.1 %; Hematocrit 38.1 % (35-45); Hemoglobin 12.8 g/dL (11.5-14.3); Lymphocyte % 15.6 %; Mean Corpuscular Hemoglobin 31.7 pg (27-33); Mean Corpuscular Hgb Conc 33.7 g/dL (31-36); Mean Corpuscular Volume 93.9 fL (80-97); Mean Platelet Volume 8.1 fL (7.5-11.2); Nucleated Red Blood Cells % 0.1 %/100WBC (0.0-0.8); Platelet Count 243 10^3/uL (150-450); Red Blood Count 4.05 10^6/uL (3.63-4.92); Red Cell Distribution Width 13.1 % (12-17); White Blood Count 19.7 10^3/uL (3.8-11.8)
[2024-01-16 00:26] LABS: INR 1.36 (0.83-1.13)
[2024-01-16 00:55] LABS: Creatinine, Serum 1.11 mg/dL (0.51-0.95); eGFR CKD-EPI 48.7 (>60)
[2024-01-16] MEDS: Heparin DRIP 25,000 UNITS BAG 25,000 UNITS/250 ML BAG IV SCH (00:55)
[2024-01-16 01:35] LABS: Albumin/Globulin Ratio 1.6 (1-3); C Reactive Protein 2.9 mg/L (<8.01); Calcium 9.5 mg/dL (8.6-10.3); Creatinine, Serum 1.1 mg/dL (0.51-0.95); Globulin 2.5 g/dL (2-4); Potassium 3.8 mmol/L (3.5-5.0); Total Bilirubin 0.5 mg/dL (0.2-1.0); Total Protein 6.5 g/dL (6.4-8.9); eGFR CKD-EPI 49.2 (>60)
[2024-01-16 03:41] LABS: High Sensitivity Troponin 3 Hr 3027 pg/mL (<15)
[2024-01-16] MEDS ORDERED: Dextrose 50% Syringe 50 ml 25 GM/50 ML SYRINGE IV PUSH PRN (03:45)
[2024-01-16 06:09] LABS: ABS Lymphocytes 3.2 10^3/uL (1.0-4.8); ABS Monocytes 0.9 10^3/uL (0.0-0.9); ABS Neutrophils 10.8 10^3/uL (1.5-7.6); Eosinophil % 0.2 %; Hematocrit 38.2 % (35-45); Hemoglobin 12.7 g/dL (11.5-14.3); Lymphocyte % 21.4 %; Mean Corpuscular Hemoglobin 31.4 pg (27-33); Mean Corpuscular Hgb Conc 33.3 g/dL (31-36); Mean Corpuscular Volume 94.4 fL (80-97); Mean Platelet Volume 8.1 fL (7.5-11.2); Platelet Count 238 10^3/uL (150-450); Red Blood Count 4.05 10^6/uL (3.63-4.92); Red Cell Distribution Width 12.9 % (12-17)
[2024-01-16 06:14] LABS: HDL Cholesterol 44.7 mg/dL
[2024-01-16 06:35] LABS: Albumin 3.9 g/dL (3.2-5.2); Albumin/Globulin Ratio 1.6 (1-3); Creatinine, Serum 1.11 mg/dL (0.51-0.95); Globulin 2.4 g/dL (2-4); Potassium 3.9 mmol/L (3.5-5.0); Total Bilirubin 0.5 mg/dL (0.2-1.0); Total Protein 6.3 g/dL (6.4-8.9); eGFR CKD-EPI 48.7 (>60)
[2024-01-16] MEDS: Insulin GLARGINE 100 un/ml 10 ml VIAL SUBCUT SCH (09:27)
[2024-01-16] MEDS: Nitro 2% OINT (Nitroglycerin) 1 INCH/PAK TOPICAL ONE (09:58)
[2024-01-16 10:57] LABS: High Sensitivity Troponin 1 Hr 6508 pg/mL (<15)
[2024-01-16] MEDS: Heparin 5000 UNITS/ML 1 mL VIAL IV SCH (14:17)
[2024-01-16] MEDS: diazePAM INJ CARPUJECT 5 MG/ML SYRINGE IV ONE (20:37)
[2024-01-16] MEDS: Acetaminophen IV 1 GM/100ML 1,000 MG/100 ML BAG IV ONE ×2 (20:44→21:30)
[2024-01-16] MEDS: Metoprolol Tartrate 5 mg VIAL 5 ml VIAL (1 mg/ml) IV ONE (22:29)
[2024-01-16 23:23] LABS: High Sensitivity Troponin 1 Hr 7954 pg/mL (<15)
[2024-01-17 02:49] LABS: ABS Basophils 0.1 10^3/uL (0.0-0.1); ABS Eosinophils 0.1 10^3/uL (0.0-0.5); ABS Lymphocytes 3.8 10^3/uL (1.0-4.8); ABS Monocytes 0.9 10^3/uL (0.0-0.9); ABS Neutrophils 6.6 10^3/uL (1.5-7.6); ABS Nucleated RBC 0.01 10^3/ul; Eosinophil % 0.7 %; Hematocrit 38.5 % (35-45); Hemoglobin 13.1 g/dL (11.5-14.3); Lymphocyte % 33.3 %; Mean Corpuscular Hemoglobin 31.9 pg (27-33); Mean Corpuscular Hgb Conc 33.9 g/dL (31-36); Mean Corpuscular Volume 94.1 fL (80-97); Mean Platelet Volume 7.9 fL (7.5-11.2); Nucleated Red Blood Cells % 0.1 %/100WBC (0.0-0.8); Platelet Count 194 10^3/uL (150-450); White Blood Count 11.5 10^3/uL (3.8-11.8)
[2024-01-17 06:22] LABS: ABS Basophils 0.1 10^3/uL (0.0-0.1); ABS Eosinophils 0.1 10^3/uL (0.0-0.5); ABS Lymphocytes 3.2 10^3/uL (1.0-4.8); ABS Monocytes 0.8 10^3/uL (0.0-0.9); ABS Neutrophils 5.6 10^3/uL (1.5-7.6); ABS Nucleated RBC 0.01 10^3/ul; Hematocrit 36.7 % (35-45); Hemoglobin 12.6 g/dL (11.5-14.3); Lymphocyte % 32.1 %; Mean Corpuscular Hemoglobin 32.2 pg (27-33); Mean Corpuscular Hgb Conc 34.4 g/dL (31-36); Mean Corpuscular Volume 93.8 fL (80-97); Nucleated Red Blood Cells % 0.1 %/100WBC (0.0-0.8); Platelet Count 200 10^3/uL (150-450); Red Blood Count 3.91 10^6/uL (3.63-4.92); Red Cell Distribution Width 13.2 % (12-17); White Blood Count 9.9 10^3/uL (3.8-11.8)
[2024-01-17 06:43] LABS: Creatinine, Serum 0.99 mg/dL (0.51-0.95); eGFR CKD-EPI 55.9 (>60)
[2024-01-17 08:08] LABS: Calcium 8.5 mg/dL (8.6-10.3); Magnesium 1.8 mg/dL (1.9-2.7); Potassium 4.1 mmol/L (3.5-5.0)
[2024-01-17] MEDS: Insulin GLARGINE 100 un/ml 10 ml VIAL SUBCUT SCH (08:27)
[2024-01-17] MEDS: Nitroglycerin 0.2 mg/hr PATCH (5 mg) TRANSDERM SCH (08:30)
[2024-01-17] MEDS ORDERED: Morphine 2 MG/ML SYRINGE IV PRN (15:10)
[2024-01-17] MEDS ORDERED: diazePAM INJ CARPUJECT 5 MG/ML SYRINGE IV PRN (15:27)
[2024-01-18 00:22] LABS: ABS Basophils 0.1 10^3/uL (0.0-0.1); ABS Eosinophils 0.1 10^3/uL (0.0-0.5); ABS Lymphocytes 3.8 10^3/uL (1.0-4.8); ABS Monocytes 1.1 10^3/uL (0.0-0.9); ABS Neutrophils 7.2 10^3/uL (1.5-7.6); ABS Nucleated RBC 0.01 10^3/ul; Eosinophil % 0.9 %; Hematocrit 39.8 % (35-45); Hemoglobin 13.7 g/dL (11.5-14.3); Lymphocyte % 31.2 %; Mean Corpuscular Hemoglobin 32.2 pg (27-33); Mean Corpuscular Hgb Conc 34.4 g/dL (31-36); Mean Corpuscular Volume 93.6 fL (80-97); Mean Platelet Volume 8.2 fL (7.5-11.2); Platelet Count 213 10^3/uL (150-450); Red Blood Count 4.26 10^6/uL (3.63-4.92); Red Cell Distribution Width 12.8 % (12-17); White Blood Count 12.3 10^3/uL (3.8-11.8)
[2024-01-18 01:50] LABS: Creatinine, Serum 1.29 mg/dL (0.51-0.95); eGFR CKD-EPI 40.7 (>60)
[2024-01-18 06:35] LABS: ABS Basophils 0.1 10^3/uL (0.0-0.1); ABS Eosinophils 0.1 10^3/uL (0.0-0.5); ABS Lymphocytes 3.3 10^3/uL (1.0-4.8); ABS Monocytes 0.9 10^3/uL (0.0-0.9); ABS Nucleated RBC 0.01 10^3/ul; Eosinophil % 0.8 %; Hematocrit 40.7 % (35-45); Hemoglobin 13.9 g/dL (11.5-14.3); Lymphocyte % 29.1 %; Mean Corpuscular Hgb Conc 34.1 g/dL (31-36); Mean Corpuscular Volume 93.7 fL (80-97); Mean Platelet Volume 8.5 fL (7.5-11.2); Nucleated Red Blood Cells % 0.1 %/100WBC (0.0-0.8); Platelet Count 225 10^3/uL (150-450); Red Blood Count 4.34 10^6/uL (3.63-4.92); Red Cell Distribution Width 12.9 % (12-17); White Blood Count 11.4 10^3/uL (3.8-11.8)
[2024-01-18 06:54] LABS: Calcium 9.3 mg/dL (8.6-10.3); Creatinine, Serum 1.1 mg/dL (0.51-0.95); Potassium 4.2 mmol/L (3.5-5.0); eGFR CKD-EPI 49.2 (>60)
[2024-01-18] MEDS: Enoxaparin 80 MG/0.8 ML SYR SUBCUT SCH (12:28)
[2024-01-18 13:38] LABS: CKMB ng/mL 6.7 ng/mL (0.6-6.3)
[2024-01-18 14:35] LABS: High Sensitivity Troponin 1 Hr 3121 pg/mL (<15)
[2024-01-18 22:34] LABS: ABS Eosinophils 0.1 10^3/uL (0.0-0.5); ABS Lymphocytes 3.3 10^3/uL (1.0-4.8); ABS Monocytes 1.2 10^3/uL (0.0-0.9); Eosinophil % 0.7 %; Hematocrit 40.7 % (35-45); Hemoglobin 13.3 g/dL (11.5-14.3); Lymphocyte % 25.9 %; Mean Corpuscular Hemoglobin 31.5 pg (27-33); Mean Corpuscular Hgb Conc 32.8 g/dL (31-36); Mean Corpuscular Volume 96.1 fL (80-97); Mean Platelet Volume 8.1 fL (7.5-11.2); Platelet Count 220 10^3/uL (150-450); Red Blood Count 4.24 10^6/uL (3.63-4.92); Red Cell Distribution Width 13.1 % (12-17); White Blood Count 12.6 10^3/uL (3.8-11.8)
[2024-01-19] MEDS: Insulin GLARGINE 100 un/ml 10 ml VIAL SUBCUT SCH (08:19)
[2024-01-19 08:56] LABS: Calcium 9.1 mg/dL (8.6-10.3); Creatinine, Serum 1.02 mg/dL (0.51-0.95); Magnesium 2.1 mg/dL (1.9-2.7); Potassium 4.2 mmol/L (3.5-5.0); eGFR CKD-EPI 53.9 (>60)
[2024-01-19 23:53] LABS: ABS Basophils 0.1 10^3/uL (0.0-0.1); ABS Eosinophils 0.2 10^3/uL (0.0-0.5); ABS Lymphocytes 3.9 10^3/uL (1.0-4.8); ABS Monocytes 1.1 10^3/uL (0.0-0.9); ABS Neutrophils 7.4 10^3/uL (1.5-7.6); Eosinophil % 1.3 %; Hematocrit 39.1 % (35-45); Hemoglobin 13.3 g/dL (11.5-14.3); Lymphocyte % 30.5 %; Mean Corpuscular Hemoglobin 32.2 pg (27-33); Mean Corpuscular Hgb Conc 34.1 g/dL (31-36); Mean Corpuscular Volume 94.4 fL (80-97); Mean Platelet Volume 7.9 fL (7.5-11.2); Platelet Count 230 10^3/uL (150-450); Red Blood Count 4.14 10^6/uL (3.63-4.92); White Blood Count 12.7 10^3/uL (3.8-11.8)
[2024-01-20] MEDS ORDERED: methylPREDNISolone SOD SUCC 40 mg/ml 1 ml VIAL IV SCH (01:00)
[2024-01-20] MEDS: hydrOXYzine IM 50 MG/ML VIAL IM ONE (01:03)
[2024-01-20] MEDS: methylPREDNISolone SOD SUCC 40 mg/ml 1 ml VIAL IV SCH (01:14)
[2024-01-20 07:04] LABS: ABS Eosinophils 0.1 10^3/uL (0.0-0.5); ABS Lymphocytes 2.5 10^3/uL (1.0-4.8); ABS Neutrophils 6.9 10^3/uL (1.5-7.6); Eosinophil % 1.4 %; Hematocrit 40.3 % (35-45); Hemoglobin 13.6 g/dL (11.5-14.3); Mean Corpuscular Hemoglobin 31.9 pg (27-33); Mean Corpuscular Hgb Conc 33.6 g/dL (31-36); Mean Platelet Volume 8.3 fL (7.5-11.2); Platelet Count 212 10^3/uL (150-450); Red Blood Count 4.24 10^6/uL (3.63-4.92); Red Cell Distribution Width 12.9 % (12-17); White Blood Count 10.6 10^3/uL (3.8-11.8)
[2024-01-20 07:22] LABS: Calcium 9.1 mg/dL (8.6-10.3); Creatinine, Serum 1.03 mg/dL (0.51-0.95); Phosphorus 3.6 mg/dL (2.5-5.0); Potassium 4.2 mmol/L (3.5-5.0); eGFR CKD-EPI 53.3 (>60)
[2024-01-20 13:07] VITALS: BP 99/65
== END 2024-01-20 14:05 | disposition home or self-care (01) | DRG 280 ==
LOC: ED 23:15 → SUATTDRO 01-16 00:55 → EDHOLD 01-16 00:55 → MEDTELE 01-16 03:18
PROVIDERS: ADMIT Internal Medicine; ATTEND Student in an Organized Health Care Education/Training Program